=== PATIENT | female | born 1990 | race Caucasian/White ===

== ENCOUNTER 2018-10-14 02:16 | Emergency (ER) | payer MEDICAID ==
[~2018-10-14] VITALS: Ht 160 cm; Wt 99.8 kg
[2018-10-14 02:27] VITALS: BP 145/84
--- NOTE | 2018-10-14 02:30 | NUR ---
PT BIB S/O C/O VAGINAL BLEEDING DURING . PT STATES SPOTTING X1 WEEK, HEAVY BLEEDING AND BLOOD CLOTS STARTED FRIDAY MORNING; PT STATES 8/10 LOWER ABD CRAMPING PAIN, RADIATES TO LOWER BACK. 4 PADS SATURATED SINCE Friday. DENIES N/V/D, OR TRAUMA. --BREATHING EQUAL AND UNLABORED. LUNGS SOUND CLEAR BL. BOWEL SOUNDS ACTIVE X4 QUAD. SKIN WARM, DRY AND INTACT; COLOR WNL. LMP: 08/12/18, . PMH: [facility] RX: DENIES Addendum: 10/14/18 at 0306 by [email or web address] PT BIB S/O C/O VAGINAL BLEEDING DURING . PT STATES SPOTTING X1 WEEK, HEAVY BLEEDING AND BLOOD CLOTS STARTED Friday; PT STATES 8/10 LOWER ABD CRAMPING PAIN, RADIATES TO LOWER BACK. 4 PADS SATURATED SINCE Friday. DENIES N/V/D, OR TRAUMA. --BREATHING EQUAL AND UNLABORED. LUNGS SOUND CLEAR BL. BOWEL SOUNDS ACTIVE X4 QUAD. SKIN WARM, DRY AND INTACT; COLOR WNL. VSS. LMP: 08/12/18, . PT IN GOWN, IN BED; BED IN LOWER LOCKED POSITION. ER MD AWARE OF PT STATUS. WILL CONTINUE TO MONITOR. PMH: [facility] RX: DENIES
--- NOTE | 2018-10-14 02:40 | NUR ---
Dr. Riddle evaluating patient at bedside.
[2018-10-14 02:53] LABS: BASOPHILS # (AUTO) 0.1 K/uL (0.00-0.22); BASOPHILS % (AUTO) 0.5 % (0.0-2.0); EOSINOPHILS # (AUTO) 0.2 K/uL (0-0.4); EOSINOPHILS % (AUTO) 2.1 % (0.0-4.0); HEMATOCRIT 39.7 % (36-48); LYMPHOCYTES # (AUTO) 2.2 K/uL (2.5-16.5); LYMPHOCYTES % (AUTO) 19.4 % (20.5-51.1); MEAN CORPUSCULAR HEMOGLOBIN 26 pg (27-31); MEAN CORPUSCULAR HGB CONC 33 g/dL (33-37); MEAN CORPUSCULAR VOLUME 79.6 fL (80-94); MONOCYTES # (AUTO) 0.7 K/uL (0.8-1.0); MONOCYTES % (AUTO) 5.9 % (1.7-9.3); NEUTROPHILS # (AUTO) 8.3 K/uL (1.8-7.7); NEUTROPHILS % (AUTO) 72.1 % (42.2-75.2); PLATELET COUNT (AUTO) 237 K/uL (140-450); RED BLOOD CELL COUNT(AUTO) 4.99 MIL/uL (4.20-5.40); RED CELL DISTRIBUTION WIDTH 13.6 % (11.6-13.7); WHITE BLOOD COUNT (AUTO) 11.5 K/uL (4.8-10.8)
[2018-10-14 03:00] LABS: APPEARANCE,URINE BLOODY (CLEAR); BILIRUBIN,URINE NEGATIVE (NEGATIVE); BLOOD, URINE 3+ (NEGATIVE); COLOR,URINE RED (YELLOW); LEUKOCYTE ESTERASE ,URINE 1+ (NEGATIVE); NITRITE, URINE POSITIVE (NEGATIVE); UGLUCOSE NEGATIVE (NEGATIVE)
[2018-10-14 03:04] LABS: ANION GAP 16.4 (8-16); CARBON DIOXIDE 23.3 mmol/L (21-32); CREATININE 0.7 mg/dL (0.6-1.3); POTASSIUM 3.7 mmol/L (3.5-5.1)
--- NOTE | 2018-10-14 03:12 | NUR ---
PT TAKEN TO ULTRASOUND
[2018-10-14 03:13] LABS: RBC,URINE TOO NUMEROUS TO COUN /HPF (0-5)
--- NOTE | 2018-10-14 03:35 | NUR ---
PT RETURN FROM ULTRASOUND
--- NOTE | 2018-10-14 03:55 | NUR ---
Patient discharged with v/s stable. Patient states she is ready to go home, 3/10 pain at this time; patient acting appropriatly. Written and verbal after care instructions given and explained. Patient alert, oriented and verbalized understanding of instructions. Ambulatory with steady gait with s/o at side. All questions addressed prior to discharge. ID band removed. Patient advised to follow up with PMD. Rx of Macrobid given. Patient educated on indication of medication including possible reaction and side effects. Opportunity to ask questions provided and answered.
[2018-10-14 04:19] VITALS: BP 138/79
== END 2018-10-14 03:55 | disposition home or self-care (01) ==
LOC: MED 02:16
DX: O20.8 Other hemorrhage in early pregnancy (principal); O23.41 Unspecified infection of urinary tract in pregnancy, first trimester; O26.891 Other specified pregnancy related conditions, first trimester; R03.0 Elevated blood-pressure reading, without diagnosis of hypertension; Z3A.01 Less than 8 weeks gestation of pregnancy
CPT/HCPCS: 36415; 76801; 80048; 81001; 81025; 84702; 85025; 86900; 86901; 87086; 99284

== ENCOUNTER 2019-09-21 02:31 | Emergency (ER) | payer MEDICAID, OTHER ==
[~2019-09-21] VITALS: Ht 160 cm; Wt 95.3 kg
[2019-09-21 02:35] VITALS: BP 129/85
[2019-09-21 03:15] LABS: BASOPHILS % (AUTO) 0.5 % (0.0-2.0); EOSINOPHILS # (AUTO) 0.1 K/uL (0-0.4); EOSINOPHILS % (AUTO) 0.7 % (0.0-4.0); HEMATOCRIT 41.6 % (36-48); LYMPHOCYTES # (AUTO) 2.5 K/uL (2.5-16.5); LYMPHOCYTES % (AUTO) 26.1 % (20.5-51.1); MEAN CORPUSCULAR HEMOGLOBIN 27 pg (27-31); MEAN CORPUSCULAR HGB CONC 34 g/dL (33-37); MEAN CORPUSCULAR VOLUME 79.5 fL (80-94); MONOCYTES # (AUTO) 0.6 K/uL (0.8-1.0); MONOCYTES % (AUTO) 6.6 % (1.7-9.3); NEUTROPHILS # (AUTO) 6.4 K/uL (1.8-7.7); NEUTROPHILS % (AUTO) 66.1 % (42.2-75.2); PLATELET COUNT (AUTO) 259 K/uL (140-450); RED BLOOD CELL COUNT(AUTO) 5.23 MIL/uL (4.20-5.40); RED CELL DISTRIBUTION WIDTH 13.7 % (11.6-13.7); WHITE BLOOD COUNT (AUTO) 9.7 K/uL (4.8-10.8)
[2019-09-21 03:32] LABS: APPEARANCE,URINE CLEAR (CLEAR); BILIRUBIN,URINE NEGATIVE (NEGATIVE); BLOOD, URINE NEGATIVE (NEGATIVE); COLOR,URINE YELLOW (YELLOW); LEUKOCYTE ESTERASE ,URINE NEGATIVE (NEGATIVE); NITRITE, URINE NEGATIVE (NEGATIVE); UGLUCOSE NEGATIVE (NEGATIVE)
[2019-09-21 06:20] VITALS: BP 118/78
== END 2019-09-21 06:20 | disposition home or self-care (01) ==
LOC: MED 02:31
DX: O20.8 Other hemorrhage in early pregnancy (principal); O26.891 Other specified pregnancy related conditions, first trimester; M54.9 Dorsalgia, unspecified; Z3A.01 Less than 8 weeks gestation of pregnancy
CPT/HCPCS: 36415; 76817; 81003; 84702; 85025; 86900; 86901; 99284; Q0092